=== PATIENT | female | born 1955 | race Two or more races ===

== ENCOUNTER 2018-09-27 09:45 | Inpatient (IN) | payer OTHER ==
[~2018-09-27] VITALS: Ht 157.5 cm; Wt 78.5 kg
[2018-09-27] MEDS ORDERED: COZAAR100 MG PO (12:52)
[2018-09-27] MEDS ORDERED: ZEGERID 40 MG1 EACH PO (12:53)
== END 2018-10-02 12:48 | disposition home or self-care (01) | DRG 735 ==
LOC: O/R 09-29 06:00 → SURH 09-29 06:00
PROVIDERS: ADMIT Obstetrics & Gynecology Gynecologic Oncology
PROC: 07TC0ZZ Resection of Pelvis Lymphatic, Open Approach (ICD-10-PCS; 2018-09-29)
PROC: 0UT70ZZ Resection of Bilateral Fallopian Tubes, Open Approach (ICD-10-PCS; 2018-09-29)
PROC: 0UT90ZZ Resection of Uterus, Open Approach (ICD-10-PCS; principal; 2018-09-29 11:30)
DX: C54.1 Malignant neoplasm of endometrium (principal)